=== PATIENT | male | born 1975 | race Two or more races ===

== ENCOUNTER 2024-06-13 20:11 | Emergency (ER) | payer BC ==
[~2024-06-13] VITALS: Ht 180.3 cm; Wt 95.3 kg
[2024-06-13] MEDS ORDERED: 0.9 % SODIUM CHLORIDE 1,000 ML IV ONE (20:30)
[2024-06-13 21:26] LABS: HEMATOCRIT 42.4 % (39.0-48.0); HEMOGLOBIN 15.1 g/dL (13-16.00); MEAN CELL VOLUME 94.4 fL (80.0-100.00); MEAN CORPUSCULAR HEMOGLOBIN 33.6 pg (27.00-32.0); MEAN CORPUSCULAR HGB CONC 35.6 g/dl (32.0-36.0); PLATELET COUNT 257 K/uL (150-450); RED CELL DISTRIBUTION WIDTH 13.7 % (11.5-14.5)
[2024-06-13 21:50] LABS: ALBUMIN 3.6 gm/dL (3.4-5.0); BILIRUBIN TOTAL 0.37 mg/dL (0.3-1.2); CREATININE SERUM 0.93 mg/dL (0.70-1.30); GFR 86.72; GLOBULINA 3.4 G/DL (2.4-3.5); POTASSIUM 4.03 mEq/L (3.5-5.1)
== END 2024-06-13 23:53 | disposition home or self-care (01) ==
LOC: ER 20:11
PROVIDERS: General Practice
DX: E86.0 Dehydration (principal); R42 Dizziness and giddiness